=== PATIENT | male | born 1985 | race Hispanic/Latino ===

== ENCOUNTER 2019-01-06 14:45 | Emergency (ER) | payer SELFPAY ==
[2019-01-06] MEDS ORDERED: ONDANSETRON 4 MG/2 ML VIAL ONE (15:25)
[2019-01-06] MEDS ORDERED: NA CHLORIDE 0.9% 1,000 ML ONE (15:25)
[2019-01-06 15:31] LABS: Arterial Blood Carboxyhemoglob 0.5 % (0-1.5); Blood Gas Oxyhemoglobin 94.5 % (94-97); Blood O2 Saturation 95.9 % (92-98.5)
[2019-01-06 15:42] LABS: Absolute Lymphocytes (CBC) 0.8 K/uL (0.7-4.9); Basophils % 0.3 % (0-1.3); Hematocrit 46.3 % (39.6-49.0); Lymphocytes % 6.9 % (15.3-44.8); RBC Red Blood Cell Count 5.38 M/uL (4.33-5.43)
[2019-01-06 15:52] LABS: ALT/SGPT 60 U/L (12-78); AST/SGOT 23 U/L (15-37); Albumin 4.7 g/dL (3.4-5.0); Alkaline Phosphatase 112 U/L (45-117); BUN Blood Urea Nitrogen 17 mg/dL (7-18); Bicarbonate 28 mmol/L (21-32); Bilirubin Direct 0.2 mg/dL (0-0.2); Bilirubin Total 1.1 mg/dL (0.2-1.0); Creatine Phosphokinase 150 U/L (39-308); Glucose Level 142 mg/dL (74-106); Lipase 74 U/L (73-393); Protein, Total 8.2 g/dL (6.4-8.2); Sodium Level 142 mmol/L (136-145)
[2019-01-06 16:08] LABS: Blood Morphology Comment NOT SEEN (NOT SEEN); Platelet Estimate ADEQ; Urine White Blood Cell Casts OK
[2019-01-06] MEDS ORDERED: KETOROLAC 30 MG/ML INJ ONE (16:17)
[2019-01-06 16:51] LABS: Urine Blood NEGATIVE (NEG); Urine Glucose NEGATIVE (NEG); Urine Protein NEGATIVE (NEG); Urine Specific Gravity 1.025 (1.005-1.030)
--- NOTE | 2019-01-06 17:08 | EDPHYS ---
Physician Documentation [facility] Name: Mc Daniels Age: 33 yrs Sex: Male : 1985 Arrival Date: 01/06/2019 Time: 14:47 Bed 16 Private MD: ED Physician Miki Adkins HPI: 01/06 15:15 This 33 yrs old Male presents to ER via Ambulatory with complaints of kb Headache, Vomiting. 15:15 The patient complains of pain to the forehead. kb 15:17 The patient describes the headache as constant. Onset: The symptoms/episode kb began/occurred yesterday. Associated signs and symptoms: Pertinent positives: nausea, vomiting. Severity of symptoms: At its worst the pain was moderate, in the emergency department the pain is unchanged. Headache History: Denies prior headaches. The symptoms are alleviated by nothing. the symptoms are aggravated by nothing. The patient has not experienced similar symptoms in the past. The patient has not recently seen a physician. Pt reports he inhaled natural gas yesterday and he started getting a headache. Today headache continues and he now has abd pain, nausea and vomiting. Historical: - Allergies: 14:57 No Known Allergies; iw - Home Meds: 14:57 None [Active]; iw - PMHx: 14:57 None; iw - PSHx: 14:57 None; iw - Immunization history:: Adult Immunizations. - Social history:: Smoking status: Patient/guardian denies using tobacco. - Ebola Screening: : Patient negative for fever greater than or equal to 101.5 degrees Fahrenheit, and additional compatible Ebola Virus Disease symptoms Patient denies exposure to infectious person Patient denies travel to an Ebola-affected area in the 21 days before illness onset No symptoms or risks identified at this time. ROS: 15:17 Constitutional: Negative for fever, chills, and weight loss, Cardiovascular: Negative kb for chest pain, palpitations, and edema, Respiratory: Negative for shortness of breath, cough, wheezing, and pleuritic chest pain, Back: Negative for injury and pain, MS/Extremity: Negative for injury and deformity, Skin: Negative for injury, rash, and discoloration. 15:17 Abdomen/GI: Positive for abdominal pain, nausea and vomiting. 15:17 Neuro: Positive for headache, Negative for altered mental status, dizziness, gait disturbance, hearing loss, loss of consciousness, numbness, seizure activity, speech changes, syncope, near syncope, tingling, tinnitus, tremor, visual changes, weakness. Exam: 15:17 Constitutional: This is a well developed, well nourished patient who is awake, alert, kb and in no acute distress. Head/Face: Normocephalic, atraumatic. ENT: Nares patent. No nasal discharge, no septal abnormalities noted. Tympanic membranes are normal and external auditory canals are clear. Oropharynx with no redness, swelling, or masses, exudates, or evidence of obstruction, uvula midline. Mucous membranes moist. Neck: Trachea midline, no thyromegaly or masses palpated, and no cervical lymphadenopathy. Supple, full range of motion without nuchal rigidity, or vertebral point tenderness. No Meningismus. Chest/axilla: Normal chest wall appearance and motion. Nontender with no deformity. No lesions are appreciated. Cardiovascular: Regular rate and rhythm with a normal S1 and S2. No gallops, murmurs, or rubs. Normal PMI, no JVD. No pulse deficits. Respiratory: Lungs have equal breath sounds bilaterally, clear to auscultation and percussion. No rales, rhonchi or wheezes noted. No increased work of breathing, no retractions or nasal flaring. Back: No spinal tenderness. No costovertebral tenderness. Full range of motion. Skin: Warm, dry with normal turgor. Normal color with no rashes, no lesions, and no evidence of cellulitis. MS/ Extremity: Pulses equal, no cyanosis. Neurovascular intact. Full, normal range of motion. Neuro: Awake and alert, GCS 15, oriented to person, place, time, and situation. Cranial nerves II-XII grossly intact. Motor strength 5/5 in all extremities. Sensory grossly intact. Cerebellar exam normal. Normal gait. 15:17 Abdomen/GI: Inspection: abdomen appears normal, Bowel sounds: normal, in all quadrants, Palpation: soft, in all quadrants, mild abdominal tenderness, in all quadrants. Vital Signs: 14:57 BP 131 / 77; Pulse 68; Resp 16; Temp 98.1; Pulse Ox 98% on R/A; Weight 77.11 kg; Height iw 5 ft. 7 in. (170.18 cm); Pain 10/10; 14:57 Body Mass Index 26.63 (77.11 kg, 170.18 cm) iw [place] Coma Score: 15:17 Eye Response: spontaneous(4). Verbal Response: oriented(5). Motor Response: obeys kb commands(6). Total: 15. MDM: 15:03 Patient medically screened. kb 15:17 Data reviewed: vital signs, nurses notes. Data interpreted: Pulse oximetry: on room air kb is 98 %. Interpretation: normal. 17:06 Counseling: I had a detailed discussion with the patient and/or guardian regarding: the kb historical points, exam findings, and any diagnostic results supporting the discharge/admit diagnosis, lab results, the need for outpatient follow up, a family practitioner, to return to the emergency department if symptoms worsen or persist or if there are any questions or concerns that arise at home. ED course: symptoms resolved after treatment. 01/06 15:16 Order name: Basic Metabolic Panel; Complete Time: 15:56 kb 01/06 15:16 Order name: CBC with Diff; Complete Time: 16:13 kb 01/06 15:16 Order name: Hepatic Function; Complete Time: 15:56 kb 01/06 15:16 Order name: Lipase; Complete Time: 15:56 kb 01/06 15:16 Order name: ABG; Complete Time: 15:43 kb 01/06 15:16 Order name: CPK; Complete Time: 15:56 kb 01/06 15:16 Order name: IV Saline Lock; Complete Time: 15:32 kb 01/06 15:16 Order name: Labs collected and sent; Complete Time: 15:32 kb 01/06 15:26 Order name: Urine Dipstick--Ancillary (enter results); Complete Time: 16:55 bd 01/06 15:51 Order name: CBC Smear Scan; Complete Time: 16:13 EDMS 01/06 15:56 Order name: [place] Screen Profile; Complete Time: 16:55 kb 01/06 15:16 Order name: Urine Dipstick-Ancillary (obtain specimen); Complete Time: 15:32 kb Administered Medications: 15:28 Drug: NS 0.9% 1000 ml Route: IV; Rate: 1000 ml; Site: left antecubital; jl7 16:45 Follow up: Response: No adverse reaction; IV Status: Completed infusion; IV Intake: jl7 1000ml 15:28 Drug: Zofran 4 mg Route: IVP; Site: left antecubital; jl7 15:40 Follow up: Response: No adverse reaction; Nausea is decreased jl7 16:20 Drug: TORadol - Ketorolac 15 mg Route: IVP; Site: left antecubital; jl7 16:38 Follow up: Response: No adverse reaction; Pain is decreased jl7 Disposition: 17:26 Co-signature as Attending Physician, Miki Adkins MD. rn Disposition: 01/06/19 17:07 Discharged to Home. Impression: Headache. - Condition is Stable. - Discharge Instructions: General Headache Without Cause, [id number]. - Medication Reconciliation Form, Thank You Letter, Antibiotic Education, Prescription Opioid Use form. - Follow up: Emergency Department; When: As needed; Reason: Worsening of condition. Follow up: Private Physician; When: 2 - 3 days; Reason: Recheck today's complaints, Continuance of care, Re-evaluation by your physician. Signatures: Dispatcher [employer] EDJosefa Reno, IMCU SPECIALIST-C IMCU SPECIALIST-Ckb Vicenta Gonzalez, Miki Jones RN, MD MD rn Leal, Jahala, RN RN jl7 Corrections: (The following items were deleted from the chart) 17:17 17:07 01/06/2019 17:07 Discharged to Home. Impression: Headache. Condition is Stable. jl7 Forms are Medication Reconciliation Form, Thank You Letter, Antibiotic Education, Prescription Opioid Use. Follow up: Emergency Department; When: As needed; Reason: Worsening of condition. Follow up: Private Physician; When: 2 - 3 days; Reason: Recheck today's complaints, Continuance of care, Re-evaluation by your physician. kb
--- NOTE | 2019-01-06 17:08 | ER ---
Nurse's Notes [facility] Name: Mc Daniels Age: 33 yrs Sex: Male : 1985 Arrival Date: 01/06/2019 Time: 14:47 Bed 16 Private MD: Diagnosis: Headache Presentation: 01/06 14:55 Presenting complaint: Patient states: headache since yesterday morning, also vomiting iw since yesterday, denies fever, also c/o diffuse abd pain. Also states he may have inhaled some natural gas while working yesterday. Transition of care: patient was not received from another setting of care. Onset of symptoms was January 05, 2019. Risk Assessment: Do you want to hurt yourself or someone else? Patient reports no desire to harm self or others. Initial Sepsis Screen: Does the patient meet any 2 criteria? No. Patient's initial sepsis screen is negative. Does the patient have a suspected source of infection? No. Patient's initial sepsis screen is negative. Care prior to arrival: None. 14:55 Method Of Arrival: Ambulatory iw 14:55 Acuity: KAYLYN 3 iw Historical: - Allergies: 14:57 No Known Allergies; iw - Home Meds: 14:57 None [Active]; iw - PMHx: 14:57 None; iw - PSHx: 14:57 None; iw - Immunization history:: Adult Immunizations. - Social history:: Smoking status: Patient/guardian denies using tobacco. - Ebola Screening: : Patient negative for fever greater than or equal to 101.5 degrees Fahrenheit, and additional compatible Ebola Virus Disease symptoms Patient denies exposure to infectious person Patient denies travel to an Ebola-affected area in the 21 days before illness onset No symptoms or risks identified at this time. Screenin:20 Abuse screen: Denies threats or abuse. Denies injuries from another. Nutritional jl7 screening: No deficits noted. Tuberculosis screening: No symptoms or risk factors identified. 15:20 Fall Risk IV access (20 points). Total Carreno Fall Scale indicates No Risk (0-24 pts). jl7 Assessment: 15:20 General: Appears uncomfortable, ill, Behavior is calm, cooperative, appropriate for jl7 age. Pain: Complains of pain in NAIR Pain currently is 10 out of 10 on a pain scale. Neuro: Level of Consciousness is awake, alert, obeys commands, Oriented to person, place, time, situation. Cardiovascular: Patient's skin is warm and dry. Respiratory: Airway is patent Respiratory effort is even, unlabored, Respiratory pattern is regular, symmetrical. GI: Pt is actively vomiting clear fluid, Reports nausea. Derm: Skin is pink, warm \T\ dry. 16:39 Reassessment: Patient appears in no apparent distress at this time. Patient and/or jl7 family updated on plan of care and expected duration. Pain level reassessed. Patient is alert, oriented x 3, equal unlabored respirations, skin warm/dry/pink. Patient states feeling better. Patient states symptoms have improved. Vital Signs: 14:57 BP 131 / 77; Pulse 68; Resp 16; Temp 98.1; Pulse Ox 98% on R/A; Weight 77.11 kg; Height iw 5 ft. 7 in. (170.18 cm); Pain 10/10; 14:57 Body Mass Index 26.63 (77.11 kg, 170.18 cm) iw [place] Coma Score: 15:17 Eye Response: spontaneous(4). Verbal Response: oriented(5). Motor Response: obeys kb commands(6). Total: 15. ED Course: 14:47 Patient arrived in ED. as 14:57 Triage completed. iw 14:57 Arm band placed on. iw 15:03 Josefa Rhoades FNP-C [facility]. kb 15:03 Miki Adkins MD is Attending Physician. kb 15:11 Eunice Mcadams, ALDAIR is Primary Nurse. jl7 15:20 Patient has correct armband on for positive identification. Bed in low position. Call jl7 light in reach. Side rails up X 1. Pulse ox on. NIBP on. 15:20 Initial lab(s) drawn, by me, sent to lab. Urine collected: clean catch specimen, clear. jl7 Inserted saline lock: 20 gauge in left antecubital area, using aseptic technique. Blood collected. 17:16 No provider procedures requiring assistance completed. IV discontinued, intact, jl7 bleeding controlled, No redness/swelling at site. Pressure dressing applied. Administered Medications: 15:28 Drug: NS 0.9% 1000 ml Route: IV; Rate: 1000 ml; Site: left antecubital; jl7 16:45 Follow up: Response: No adverse reaction; IV Status: Completed infusion; IV Intake: jl7 1000ml 15:28 Drug: Zofran 4 mg Route: IVP; Site: left antecubital; jl7 15:40 Follow up: Response: No adverse reaction; Nausea is decreased jl7 16:20 Drug: TORadol - Ketorolac 15 mg Route: IVP; Site: left antecubital; jl7 16:38 Follow up: Response: No adverse reaction; Pain is decreased jl7 Intake: 16:45 IV: 1000ml; Total: 1000ml. jl7 Outcome: 17:07 Discharge ordered by MD. hoover 17:16 Discharged to home ambulatory. jl7 17:16 Condition: stable 17:16 Discharge instructions given to patient, Instructed on discharge instructions, follow up and referral plans. Demonstrated understanding of instructions, follow-up care. 17:17 Patient left the ED. jl7 Signatures: Josefa Rhoades, PRIMER POWDER BLENDER WET-C PRIMER POWDER BLENDER WET-Dalia Cabello Irene, RN RN iw Leal, Jahala, RN RN jl7 Corrections: (The following items were deleted from the chart) 15:00 14:55 Presenting complaint: Patient states: headache since yesterday morning, also iw vomiting since yesterday, denies fever, also c/o diffuse abd pain iw
== END 2019-01-06 17:17 | disposition home or self-care (01) ==
LOC: ER 14:45
DX: R51 Headache (principal); R11.2 Nausea with vomiting, unspecified
CPT/HCPCS: 36415; 80048; 80076; 81003; 82550; 82805; 83690; 85025; 86308; 96361; 96374; 96375; 99284; J2405; J7030